=== PATIENT | female | born 1995 | race Caucasian/White ===

== ENCOUNTER 2023-09-04 21:34 | Emergency (ER) | payer OTHER ==
--- NOTE | 2023-09-04 21:47 | ERPHSYRPT ---
- History of Present Illness Time Seen by Provider: 09/04/23 21:47 Source: patient Exam Limitations: no limitations Physician History: This is a 28-year-old white female patient who presents with right distal forearm pain and swelling that has been present for at least 2 days. It does not appear to be improving per her report. She is concerned about a fracture. The patient accidentally caught the forearm in a door that was closed on her. She has been using ice and Tylenol for pain control. Occurred: days ago (2 to 3 days ago) Method of Injury: direct blow (Hardware) Quality: constant, aching Extremities Pain Location: forearm: right Modifying Factors: Improves With: movement Associated Symptoms: none Allergies/Adverse Reactions: No Known Drug Allergies Allergy (Verified 09/04/23 21:48) Home Medications: No Reportable Medications [No Reported Medications] 09/04/23 [History] Travel Risk - International Travel Have you traveled outside of the country in past 3 weeks: No - Coronavirus Screening Are you exhibiting any of the following symptoms?: No Close contact with a COVID-19 positive Pt in past 14-21 Days: No - Review of Systems Constitutional: No Symptoms Eyes: No Symptoms Ears, Nose, & Throat: No Symptoms Respiratory: No Symptoms Cardiac: No Symptoms Abdominal/Gastrointestinal: No Symptoms Genitourinary Symptoms: No Symptoms Musculoskeletal: Injury (Right forearm) Skin: No Symptoms Neurological: No Symptoms Psychological: No Symptoms Endocrine: No Symptoms Hematologic/Lymphatic: No Symptoms Immunological/Allergic: No Symptoms All Other Systems: Reviewed and Negative - Past Medical History Pertinent Past Medical History: No - Past Surgical History Past Surgical History: No - Nursing Vital Signs Nursing Vital Signs: Initial Vital Signs Temperature 97.5 F 09/04/23 21:49 Pulse Rate 69 09/04/23 21:49 Respiratory Rate 18 09/04/23 21:49 Blood Pressure 117/70 09/04/23 21:49 O2 Sat by Pulse Oximetry 100 09/04/23 21:49 Pain Scale Pain Intensity 3 - Physical Exam General Appearance: no apparent distress, alert Eyes, Ears, Nose, Throat Exam: normal ENT inspection, moist mucous membranes Neck Exam: normal inspection, non-tender, supple, full range of motion Cardiovascular/Respiratory Exam: chest non-tender, no respiratory distress Abdominal Exam: non-tender Back Exam: normal inspection, normal range of motion, No CVA tenderness, No vertebral tenderness Shoulder Exam: normal inspection, non-tender, no evidence of injury, normal ROM Elbow/Forearm Exam: normal ROM, bone tenderness (Distal right forearm), soft tissue tenderness (Distal right forearm), swelling (Distal right forearm) Wrist Exam: normal inspection, non-tender, no evidence of injury, normal ROM Hand Exam: normal inspection, non-tender, no evidence of injury, normal ROM Neuro/Tendon Exam: normal sensation, normal motor functions, normal tendon functions Mental Status Exam: alert, oriented x 3, cooperative Skin Exam: normal color, warm, dry SpO2 Interpretation: normal O2 Delivery: Room Air - Course Nursing assessment & vital signs reviewed: Yes Ordered Tests: Active Orders 24 hr Category Date Time Status FOREARM Stat Exams 09/04/23 21:56 Taken WRIST (MIN 3 VIEWS) Stat Exams 09/04/23 21:56 Taken Medication Summary Generic Name Dose Route Start Last Admin Trade Name Eugenie PRN Reason Stop Dose Admin Hydrocodone Bitart/Acetaminophen 1 tab 09/04/23 22:22 Hydrocodone/Apap 5/325 1 Tab Tablet PO 09/04/23 22:23 STAT ONE Ibuprofen 600 mg 09/04/23 22:22 Ibuprofen 600 Mg Tablet PO 09/04/23 22:23 STAT ONE - Progress Progress: improved, pain not gone completely Progress Note: 09/04/23 22:26 This patient's medical issue is 1 of low complexity. The level of complexity in the workup performed is based on review of the patient's past medical history, review of the patient's medication list, review the patient's drug allergy list, review of the patient's past medical history, and physical findings on examination. This patient's workup includes x-ray of the patient's right wrist and right forearm. I interpreted the x-rays of the right wrist and right forearm. X-ray of the right wrist shows no acute fracture or dislocation. X-ray of the right forearm shows no acute fracture or dislocation. Counseled pt/family regarding: diagnosis, need for follow-up, rad results Medical Desision Making - Diagnostic Testing Diagnostic test were ordered, analyzed, and reviewed by me: Yes Radiological Interpretation: Interpreted by me - Risk of complications Minimal Risk: Minimal risk of morbidity - Departure Departure Disposition: Home Clinical Impression: Contusion of right forearm Condition: Stable Critical Care Time: No Referrals: DOCTOR,NO FAMILY [Primary Care Provider] - Follow up/PCP as directed Additional Instructions: Ice pack to the area 3 times a day for the next 48 hours. Use Tylenol and ibuprofen for pain control. The final reading of the x-ray will be performed tomorrow. You will be contacted if the reading results is different than what we told you this evening. Follow-up with your primary care provider for persistent pain and swelling.
[2023-09-04 22:04] VITALS: PULSE 69; TEMP 97.5
[2023-09-04] MEDS ORDERED: NORCO 5/325 MG PO ONE (22:22)
[2023-09-04] MEDS ORDERED: MOTRIN 600 MG PO ONE (22:22)
[2023-09-04] MEDS ORDERED: MOTRIN 600 MG ONE (22:31)
[2023-09-04] MEDS ORDERED: NORCO 5/325 MG ONE (22:32)
[2023-09-04 22:38] VITALS: BP 112/70; RESP 17; O2SAT 97
--- NOTE | 2023-09-05 08:47 | XRAY ---
Indication: Pain and swelling following injury days ago. Comparison: None 3 view right wrist demonstrates normal bones, articulation, and soft tissues for patient's age.
--- NOTE | 2023-09-05 08:47 | XRAY ---
Indication: Pain and swelling following injury days ago. Comparison: None 2 view right forearm demonstrates normal bones, articulation, and soft tissues for patient's age.
== END 2023-09-04 22:48 | disposition home or self-care (01) ==
LOC: ED 21:34
DX: S50.11XA Contusion of right forearm, initial encounter (principal); W23.0XXA Caught, crushed, jammed, or pinched between moving objects, initial encounter
CPT/HCPCS: 73090; 73110; 99283; A9270-GY

== ENCOUNTER 2023-11-08 13:17 | Emergency (ER) | payer OTHER ==
--- NOTE | 2023-11-08 13:58 | ERPHSYRPT ---
- History of Present Illness Time Seen by Provider: 11/08/23 13:58 Source: patient Exam Limitations: no limitations Physician History: This is a 28-year-old white female patient who does not have a primary care provider and presents to the emergency department with 1 week history of worsening sore throat, headache and chills. She denies visual changes. She denies neck pain. She has had no nausea vomiting or diarrhea symptoms. Patient has no known drug allergies. She takes no medications chronically. Timing/Duration: week(s) (1), worse (In the last 2 days) Cough Quality/Degree: mild, dry cough (Nonproductive) Possible Cause: no prior episodes Modifying Factors: Improves With: coughing Associated Symptoms: cough, headache, muscle aches, sore throat, No chest pain/soreness, No shortness of breath Allergies/Adverse Reactions: No Known Drug Allergies Allergy (Verified 09/04/23 21:48) Hx Tetanus, Diphtheria Vaccination/Date Given: Yes Hx Influenza Vaccination/Date Given: No Hx Pneumococcal Vaccination/Date Given: No Travel Risk - International Travel Have you traveled outside of the country in past 3 weeks: No - Coronavirus Screening Are you exhibiting any of the following symptoms?: Yes Symptoms: Cough: New Onset, Headaches/Body Aches/Fatigue - Vaccine Status Have you recieved a Covid-19 vaccination: No - Review of Systems Eyes: No Symptoms Ears, Nose, & Throat: Nose Congestion, Throat Pain Respiratory: Cough Cardiac: No Symptoms Abdominal/Gastrointestinal: No Symptoms Genitourinary Symptoms: No Symptoms Musculoskeletal: Arthralgias, Myalgias Neurological: Headache Psychological: No Symptoms Endocrine: No Symptoms Hematologic/Lymphatic: No Symptoms Immunological/Allergic: No Symptoms All Other Systems: Reviewed and Negative - Past Medical History Pertinent Past Medical History: No Neurological History: No Pertinent History ENT History: No Pertinent History Cardiac History: No Pertinent History Respiratory History: No Pertinent History Endocrine Medical History: No Pertinent History Musculoskeletal History: No Pertinent History GI Medical History: No Pertinent History History: No Pertinent History Psycho-Social History: Depression Female Reproductive Disorders: No Pertinent History - Past Surgical History Past Surgical History: No Neuro Surgical History: No Pertinent History Cardiac: No Pertinent History Respiratory: No Pertinent History Gastrointestinal: No Pertinent History Genitourinary: No Pertinent History Musculoskeletal: Other Female Surgical History: Tubal Ligation Other Surgical History: skin graft to right middle finger s/p dog bite - Social History Smoking Status: Never smoker Exposure to second hand smoke: Yes Drug Use: none Patient Lives Alone: No - Nursing Vital Signs Nursing Vital Signs: Initial Vital Signs Temperature 97.2 F 11/08/23 13:58 Pulse Rate 79 11/08/23 13:58 Respiratory Rate 20 11/08/23 13:58 Blood Pressure 104/80 11/08/23 13:58 O2 Sat by Pulse Oximetry 100 11/08/23 13:58 Pain Scale Pain Intensity 0 - Physical Exam General Appearance: no apparent distress, alert Eye Exam: PERRL/EOMI, eyes nml inspection Ears, Nose, Throat Exam: moist mucous membranes, pharyngeal erythema (Mild without exudate) Neck Exam: normal inspection, non-tender, supple, full range of motion Respiratory Exam: normal breath sounds, lungs clear, airway intact, No chest tenderness, No respiratory distress Cardiovascular Exam: regular rate/rhythm, normal heart sounds, normal peripheral pulses Gastrointestinal/Abdomen Exam: No tenderness Pelvic Exam: not done Rectal Exam: not done Back Exam: normal inspection, normal range of motion, No CVA tenderness, No vertebral tenderness Extremity Exam: normal inspection, normal range of motion, pelvis stable Neurologic Exam: alert, oriented x 3, cooperative, safety and security manager II-XII nml as tested, normal mood/affect, nml cerebellar function, nml station & gait, sensation nml Skin Exam: normal color, warm, dry Lymphatic Exam: No adenopathy SpO2 Interpretation: normal O2 Delivery: Room Air - Course Nursing assessment & vital signs reviewed: Yes Lab/Rad Data: Laboratory Results 11/08/23 11/08/23 Range/Units 14:00 14:00 Influenza Type A Ag NEGATIVE (NEGATIVE) Influenza Type B Ag NEGATIVE (NEGATIVE) RSV (PCR) NEGATIVE (NEGATIVE) SARS-CoV-2 (PCR) NEGATIVE (NEGATIVE) Group A Strep Antibody NOT DETECTED (NEGATIVE) - Progress Progress: unchanged Air Movement: good Progress Note: 11/08/23 15:46 This patient's medical issue is 1 of low complexity. Level complex in the workup performed is based on review of the patient's past medical history, review the patient's medication list, review the patient drug allergy list, history of present illness and physical findings on examination. The workup in this patient includes viral swabs and group A strep swab. I interpreted the patient's laboratory data results. The patient's viral swabs and group A strep swabs are negative. However, the patient's symptoms have been present for a week and worsening. We will send a prescription remotely to her pharmacy for hydrocodone elixir, prednisone and a Z-Tomi. Blood Culture(s) Obtained: No Antibiotics given: No Counseled pt/family regarding: lab results, diagnosis, need for follow-up Medical Desision Making - Independent Historian Additional History obtained from: Relative/friend - Diagnostic Testing Diagnostic test were ordered, analyzed, and reviewed by me: Yes - Risk of complications The pt has a mod risk of morbidity or mortality based on: Need for prescription drug management - Departure Departure Disposition: Home Clinical Impression: Pharyngitis, Bronchitis Condition: Stable Critical Care Time: No Referrals: DOCTOR,NO FAMILY [Primary Care Provider] - Follow up/PCP as directed Additional Instructions: Make plenty of clear liquids. Give medication as prescribed. Prescriptions: Prednisone 10 mg [Deltasone 10 mg] 10 mg PO TID #12 tablet Hydrocodone/Acetaminophen [Hydrocodone-Acetamn 7.5-325/15] 10 ml PO Q8H PRN #60 ml MDD 30 ml PRN Reason: Cough Azithromycin 250 mg [Zithromax 250 MG TABLET] 250 mg PO ZPACK #6 tablet
[2023-11-08 14:03] VITALS: RESP 20
[2023-11-08 14:39] VITALS: O2SAT 98
[2023-11-08 14:49] LABS: INFLUENZA A NEGATIVE (NEGATIVE); INFLUENZA B NEGATIVE (NEGATIVE); RESPIRATORY SYNCTIAL VIRUS NEGATIVE (NEGATIVE); SARS-CoV-2 Xpert Express NEGATIVE (NEGATIVE)
[2023-11-08 15:24] VITALS: PULSE 74
[2023-11-08 16:01] VITALS: BP 100/68; TEMP 98.2
== END 2023-11-08 16:02 | disposition home or self-care (01) ==
LOC: ED 13:17
DX: J02.9 Acute pharyngitis, unspecified (principal); J40 Bronchitis, not specified as acute or chronic; R51.9 Headache, unspecified; Z79.891 Long term (current) use of opiate analgesic; Z79.52 Long term (current) use of systemic steroids; Z28.310 Unvaccinated for COVID-19
CPT/HCPCS: 0241U; 87651; 99282